=== PATIENT | female | born 1965 | race Caucasian/White ===

== ENCOUNTER → 2021-06-09 | Outpatient (CLI) | payer OTHER ==
[~2021-06-09] MED LIST: HYDR-3583 PO; LSNP20T PO; LVT.025T PO; NAPR220C PO; PRM25T PO
--- NOTE | 2021-06-09 17:05 | Diagnostic Imaging Report ---
PROCEDURE: MRI lumbar spine. TECHNIQUE: Multiplanar, multisequence MRI of the lumbar spine was performed without contrast. DATE: June 09, 2021. COMPARISON: None. INDICATION: 56-year-old female, low back pain and left leg pain. Difficulties with function of the left lower extremity. FINDINGS: The alignment of the lumbar spine is grossly unremarkable. There is no evidence of a diffuse marrow infiltrating or replacing process. There is no identified compression deformity or fracture. There is no identified focal concerning bone lesion. The visualized cord and conus medullaris is unremarkable and terminates at the T12-L1 level. There is mild disc loss at L4-L5 and L5-S1 with adjacent Modic endplate degenerative related changes. There is a small broad-based posterior disc protrusion at T11-T12 without foraminal or spinal stenosis. L1-L2: There is no disc bulge. The facet joints and ligamentum flavum are unremarkable. There is no foraminal narrowing. There is no spinal canal stenosis. L2-L3: There is no disc bulge. The facet joints and ligamentum flavum are unremarkable. There is no foraminal narrowing. There is no spinal canal stenosis. L3-L4: There is no disc bulge. The facet joints and ligamentum flavum are unremarkable. There is no foraminal narrowing. There is no spinal canal stenosis. L4-L5: There is diffuse disc bulge. There are [id number] bilateral facet degenerative changes with ligamentum flavum hypertrophy. There are trace bilateral facet joint effusions. There is moderate to severe narrowing of the bilateral lateral recesses. There is moderate bilateral foraminal narrowing. There is moderate spinal canal stenosis. L5-S1: There is diffuse disc bulge eccentric to the left. There is mild to moderate narrowing of the left lateral recess. There are left greater than right facet degenerative changes. There is moderate to severe left foraminal narrowing. There is mild to moderate spinal canal stenosis. IMPRESSION: 1. Multilevel disc and facet degenerative changes of the thoracolumbar spine as described in detail level by level above. 2. No focal concerning bone lesion, compression deformity, or fracture. Dictated by: Dictated on workstation # [id number]
== END ==
LOC: RAD 14:00
PROVIDERS: ATTEND Pediatrics
DX: M47.815 Spondylosis without myelopathy or radiculopathy, thoracolumbar region (principal)
CPT/HCPCS: 72148